=== PATIENT | female | born 1990 | race Caucasian/White ===

== ENCOUNTER 2022-09-14 19:14 | Emergency (ER) | payer OTHER, BC ==
[~2022-09-14] VITALS: Ht 149.9 cm; Wt 62.6 kg
[2022-09-14 19:29] VITALS: BP_SYST 132
[2022-09-14] MEDS ORDERED: ACETAMINOPHEN 500 MG TABLET PO ONE (20:45)
[2022-09-14] MEDS ORDERED: CYCL10TA24 PO (21:49)
[2022-09-14] MEDS ORDERED: ONDA-8 TL (21:49)
[2022-09-14] MEDS ORDERED: ACET-2634 PO (21:49)
[2022-09-14 22:36] VITALS: BP_SYST 132
== END 2022-09-14 22:36 | disposition home or self-care (01) ==
LOC: SED 19:14
DX: M54.2 Cervicalgia (principal); M79.671 Pain in right foot; M25.551 Pain in right hip; Z79.899 Other long term (current) drug therapy; V49.40XA Driver injured in collision with unspecified motor vehicles in traffic accident, initial encounter; Y93.89 Activity, other specified; Y92.89 Other specified places as the place of occurrence of the external cause; Y99.8 Other external cause status
CPT/HCPCS: 70450-TC; 71045; 72125-TC; 73060-TC; 73502; 73552; 76376; 99284

== ENCOUNTER 2024-04-27 08:26 | Day surgery (SDC) | payer BC ==
[2024-04-26 10:22] LABS: BILIRUBIN,URINE NEGATIVE (NEGATIVE); COLOR,URINE YELLOW (YELLOW); GLUCOSE,URINE NEGATIVE (NEGATIVE); KETONES,URINE TRACE (NEGATIVE); LEUKOCYTE ESTERASE ,URINE TRACE (NEGATIVE); NITRITE, URINE NEGATIVE (NEGATIVE); PROTEIN URINE NEGATIVE (NEGATIVE)
[2024-04-26 10:37] LABS: BLOOD, URINE TRACE (NEGATIVE); CLARITY/URINE SLIGHTLY HAZY (CLEAR)
[2024-04-26 10:38] LABS: BASOPHILS # (AUTO) 0.1 K/uL (0.0-0.2); BASOPHILS % (AUTO) 0.6 % (0.0-2.0); EOSINOPHILS # (AUTO) 0.2 K/uL (0.0-0.4); HEMATOCRIT 37.5 % (36-48); HEMOGLOBIN 12.5 g/dL (12.0-16.0); LYMPHOCYTES # (AUTO) 1.6 K/uL (1.0-5.5); LYMPHOCYTES % (AUTO) 13.7 % (20.5-51.5); MEAN CORPUSCULAR HEMOGLOBIN 29 pg (27-31); MEAN CORPUSCULAR HGB CONC 33 % (32-36); MEAN CORPUSCULAR VOLUME 88 fL (79.0-98.0); MONOCYTES # (AUTO) 0.7 K/uL (0.0-1.0); MONOCYTES % (AUTO) 5.6 % (1.7-9.3); NEUTROPHILS # (AUTO) 9.1 K/uL (1.8-7.7); NEUTROPHILS % (AUTO) 78.1 % (40.0-70.0); PLATELET COUNT (AUTO) 399 K/uL (130-430); RED BLOOD CELL COUNT(AUTO) 4.26 MIL/uL (4.2-6.2); RED CELL DISTRIBUTION WIDTH 13.6 % (9.0-15.0); WHITE BLOOD COUNT (AUTO) 11.6 K/uL (4.8-10.8)
[2024-04-26 10:46] LABS: BACTERIA,URINE MODERATE /HPF (None Seen)
[~2024-04-27] VITALS: Ht 149.9 cm; Wt 63.5 kg
[~2024-04-27 08:26] MED LIST: ACET-2634 PO; CEFAZOLIN SOD 2 GM in D5W 50 ML IV ONE; CYCL10TA24 PO; ONDA-8 TL
[2024-04-27 09:40] VITALS: BP_SYST 123; PULSE 84; RESP 20; TEMP 97.9; O2SAT 100
[2024-04-30] MEDS ORDERED: CEFAZOLIN SOD 2 GM in D5W 50 ML IV ONE (07:00)
== END 2024-04-27 14:41 | disposition home or self-care (01) ==
LOC: SMU 08:26 → SDS 08:26
PROVIDERS: ATTEND Specialist
DX: O03.4 Incomplete spontaneous abortion without complication (principal); Z79.899 Other long term (current) drug therapy; Z53.8 Procedure and treatment not carried out for other reasons
CPT/HCPCS: 86886; 81001; 84702; 85025; 86900; 86901; 87081; 36415; 81000; J0690; J7060; 81015

== ENCOUNTER 2024-04-30 12:04 | Day surgery (SDC) | payer BC ==
[~2024-04-30] VITALS: Ht 149.9 cm; Wt 63.5 kg
[~2024-04-30 12:04] MED LIST changes: -CEFAZOLIN SOD 2 GM in D5W 50 ML IV ONE
[2024-04-30] MEDS ORDERED: ceFAZolin SODIUM 1 GM VIAL ONE (13:35)
[2024-04-30] MEDS ORDERED: LR 1,000 ML IV.SOLN IV ONE (13:35)
[2024-04-30] MEDS ORDERED: ONDANSETRON HCL 4 MG/2 ML VIAL ONE (13:35)
[2024-04-30] MEDS ORDERED: MIDAZOLAM HCL 2 MG/2 ML VIAL (VERSED) ONE (13:35)
[2024-04-30] MEDS ORDERED: fentaNYL CITRATE/PF 100 MCG/2 ML AMP ONE (13:35)
[2024-04-30] MEDS ORDERED: DEXAMETHASONE SOD PHOSPHATE 10 MG/ML VIAL ONE (13:35)
[2024-04-30] MEDS ORDERED: SEVOFLURANE 15 MIN GAS INH ONE (13:35)
[2024-04-30] MEDS ORDERED: PROPOFOL 200MG/ 20ML VIAL (DIPRIVAN) IV ONE (13:35)
[2024-04-30 13:44] VITALS: O2SAT 98
[2024-04-30] MEDS ORDERED: MEPERIDINE HCL/PF 25 MG/ML DISP.SYRIN IVP PRN (14:15)
[2024-04-30] MEDS ORDERED: HYDROmorphone 1 MG/ML INJ. CARTRIDGE IVP PRN ×2 (14:15)
[2024-04-30] MEDS ORDERED: METOCLOPRAMIDE HCL 10 MG/2 ML VIAL IVP PRN (14:15)
[2024-04-30] MEDS ORDERED: LR 1,000 ML IV SCH (14:15)
[2024-04-30] MEDS ORDERED: ONDANSETRON HCL 4 MG/2 ML VIAL IVP PRN (14:30)
[2024-04-30] MEDS ORDERED: OXYCODONE/ACETAMINOPHEN 5-325 TABLET PO PRN ×2 (14:30)
[2024-04-30 17:56] VITALS: BP_SYST 109; PULSE 81; RESP 16
[2024-04-30] MEDS ORDERED: HYDROcodone/ACETAMIN 5-325 MG TAB (NORCO/ VICODIN) PO PRN (20:15)
== END 2024-04-30 16:48 | disposition home or self-care (01) ==
LOC: SDS 12:04 → SMU 12:05 → SDS 16:48
PROVIDERS: ATTEND Specialist
DX: O03.4 Incomplete spontaneous abortion without complication (principal); E11.649 Type 2 diabetes mellitus with hypoglycemia without coma; Z79.84 Long term (current) use of oral hypoglycemic drugs; Z79.82 Long term (current) use of aspirin; Z79.899 Other long term (current) drug therapy
CPT/HCPCS: 59812; 86886; 86900; 86901; 36415; 82948; 88305; J0690; J1100; J3465; J2405; J2704; J3010; J7120